=== PATIENT | female | born 1985 | race Caucasian/White ===

== ENCOUNTER 2020-05-19 18:32 | Emergency (ER) | payer MEDICAID ==
[~2020-05-19] VITALS: Ht 170.2 cm; Wt 125.9 kg
[2020-05-19 18:45] VITALS: Ht 170.2 cm; Wt 125.9 kg
[2020-05-19] MEDS ORDERED: ABILIFY10 MG PO (18:47)
[2020-05-19] MEDS ORDERED: TOPAMAX50 MG PO (18:47)
[2020-05-19] MEDS ORDERED: PROZAC40 MG PO (18:47)
[2020-05-19] MEDS ORDERED: TRAZODONE HCL150 MG PO (18:47)
[2020-05-19] MEDS ORDERED: SEROQUEL50 MG PO (18:47)
[2020-05-19 19:19] LABS: HCG URINE NEGATIVE (NEGATIVE)
[2020-05-19 19:20] LABS: BILIRUBIN NEGATIVE (NEGATIVE); GLUCOSE NEGATIVE (NEGATIVE); KETONE NEGATIVE (NEGATIVE); NITRITE NEGATIVE (NEGATIVE); SPECIFIC GRAVITY 1.015 (1.005-1.020); UROBILINOGEN NORMAL (NORMAL)
[2020-05-19 19:21] LABS: BACTERIA MODERATE /hpf (NEGATIVE); RED CELLS - URINE 0-5 /hpf (0-5)
[2020-05-19] MEDS ORDERED: ZANAFLEX4 MG PO (20:42)
[2020-05-19] MEDS ORDERED: DICLOFENAC SODI50 MG PO (20:42)
[2020-05-19] MEDS ORDERED: KEFLEX500 MG PO (20:42)
[2020-05-19 21:04] VITALS: BP 130/67
== END 2020-05-19 21:04 | disposition home or self-care (01) ==
LOC: D.ER 18:32
PROVIDERS: Family Medicine
DX: S39.012A Strain of muscle, fascia and tendon of lower back, initial encounter (principal); N39.0 Urinary tract infection, site not specified; W10.9XXA Fall (on) (from) unspecified stairs and steps, initial encounter; Y93.9 Activity, unspecified; Y92.9 Unspecified place or not applicable; S30.0XXA Contusion of lower back and pelvis, initial encounter

== ENCOUNTER 2020-06-06 18:35 | Emergency (ER) | payer MEDICAID ==
[~2020-06-06] VITALS: Ht 170.2 cm; Wt 125.9 kg
[~2020-06-06 18:35] MED LIST: ABILIFY10 MG PO; DICLOFENAC SODI50 MG PO; KEFLEX500 MG PO; PROZAC40 MG PO; SEROQUEL50 MG PO; TOPAMAX50 MG PO; TRAZODONE HCL150 MG PO; ZANAFLEX4 MG PO
[2020-06-06 18:48] VITALS: Ht 170.2 cm; Wt 125.9 kg
[2020-06-06] MEDS ORDERED: KLONOPIN1 MG PO (19:15)
[2020-06-06 19:34] VITALS: BP 118/89
== END 2020-06-06 19:34 | disposition home or self-care (01) ==
LOC: D.ER 18:35
DX: F41.9 Anxiety disorder, unspecified (principal)